=== PATIENT | female | born 1970 | race American Indian/Alaskan Native ===

== ENCOUNTER 2018-06-10 09:26 | Day surgery (SDC) | payer OTHER ==
[2018-06-10] MEDS ORDERED: NACL 0.9% 1000 ML 1,000 ML IV SCH (11:00)
--- NOTE | 2018-06-10 11:02 | Anesthesia Consultation ---
Anesthesia Consult and Med Hx Date of service: 06/10/18 - Airway Anesthetic Teeth Evaluation: Partials ROM Head & Neck: Adequate Mental/Hyoid Distance: Adequate Mallampati Class: Class II Intubation Access Assessment: Probably Good - Pulmonary Exam CTA: Yes - Cardiac Exam Cardiac Exam: RRR - Pre-Operative Health Status ASA Pre-Surgery Classification: ASA2 Proposed Anesthetic Plan: MAC - Pulmonary Hx Smoking: No Hx Asthma: No Hx Respiratory Symptoms: Yes (bronchitis; asymptomatic today) SOB: No - Cardiovascular System Hx Hypertension: Yes (noncompliant with meds however BP normal today) Hx Heart Attack/AMI: No Hx Percutaneous Transluminal Coronary Angioplasty (PTCA): No Hx Cardia Arrhythmia: No - Central Nervous System Hx Seizures: No CVA: No - Endocrine Hx Renal Disease: No Hx Liver Disease: No Hx Insulin Dependent Diabetes: No Hx Non-Insulin Dependent Diabetes: No Hx Thyroid Disease: No - Other Systems Hx Obesity: No - Additional Comments Anesthesia Medical History Comments: No hx anesthetic complications.
--- NOTE | 2018-06-10 11:02 | Anesthesia Day of Surgery ---
Anesthesia Day of Surgery - Day of Surgery Patient Examined: Yes Patient H&P Reviewed: Yes Patient is NPO: Yes
[2018-06-10] MEDS ORDERED: DIPRIVAN 10 MG/ML IV ONE ×2 (12:36→12:37)
--- NOTE | 2018-06-10 13:03 | Procedure Note ---
Date of procedure: 06/10/18 Pre-op diagnosis: GERD/Colon Polyp Screening Post-op diagnosis: other (Mild to Moderate Distal Erosive Esophagitis/ Gastritis/ No Colon Polyps noted/ minor,Left Colon Diverticuli/ Minor,Internal Hemorrhoid) Procedure: EGD with Biopsy and Colonoscopy Anesthesia: [facility] [place] Surgeon: JAYCE ANDERSEN Estimated blood loss: minimal Pathology: list Specimen disposition: to lab Condition: stable Disposition: same day (Avoid aspirin and NSAID for 5 days. Treat with PPI and follow up in 1 to 2 weeks ([phone]).)
--- NOTE | 2018-06-10 13:05 | Operative Report ---
PROCEDURE: EGD. INDICATIONS: A 47-year-old female with an underlying history of blood pressure, who has taken NSAID. They had noticed some hematemesis on one occasion. EGD was done and also has complaints of GERD symptoms. EGD was done to make sure there was not any significant upper GI pathology present. DESCRIPTION OF PROCEDURE: Procedure was done after getting informed consent with MAC anesthesia. Instrument was passed through the hypopharynx into the esophagus, which showed mild to moderate distal erosive esophagitis. There was no evidence of any Leilani-Payne tear or any active bleeding from the esophagus. Similarly, there was no evidence of any active bleeding from the stomach. Stomach showed some antral gastritis. No peptic ulcer disease, was noted in the straight or the retroverted view. The pylorus was patent. The duodenum in the first and second portion appeared normal. Biopsy was done from the gastric antrum, angularis incisura, gastric body to rule out for H. pylori and atrophic gastritis. There was minimal bleeding from the biopsy site. No complications associated with the procedure. ASSESSMENT: GERD, mild to moderate distal erosive esophagitis, gastritis. No peptic ulcer disease noted. Patent pylorus. Plan is to treat the patient with PPI, have the patient avoid aspirin and aspirin-related products for the next few days. Follow up in the office in 1-2 weeks' time. A colonoscopy will also be done as part of colon polyp screening. Again, there was minimal bleeding from the biopsy sites. No complications associated with the procedure. Kacey Colunga was in the room throughout the entirety of the procedure. JOB# [id number] SAMUEL/OCTAVIANO
--- NOTE | 2018-06-10 13:09 | Operative Report ---
PROCEDURE: Colonoscopy. INDICATIONS: A 47-year-old -[place] female, who has an underlying history of blood pressure. She has a strong family history of cancer. She has got family history of breast cancer with mets to the brain, grandmother having lung cancer. Colonoscopy was done to make sure that there was no significant as part of colon polyp screening procedure was done after getting informed consent with MAC and strong family history of cancer. Initial rectal exam was unremarkable. Instrument was passed through the rectum onto the cecum, which was identified with ileocecal valve and appendiceal orifice. Visualization was fair. Cecum, ascending colon, transverse colon showed normal mucosa. There was minor left colon diverticular disease, some of which were; however, deep and minor internal hemorrhoids on the retroverted view. There was no bleeding associated with the procedure. No complications associated with the procedure. ASSESSMENT: Colon polyp screening. FAMILY HISTORY: Cancer. No colon polyps noted. Minor left colon diverticular disease, minor internal hemorrhoids. The patient will be encouraged to take fiber supplements. She will be treated with PPI because of the upper GI findings of esophagitis, gastritis, must avoid aspirin and aspirin-related products for the next few days and to follow up in the office in 1-2 weeks' time. RN, Kacey Colunga was in the room for the entirety of the procedure. JOB# [id number] SAMUEL/OCTAVIANO
[2018-06-10 13:40] VITALS: BP 123/85
== END 2018-06-10 09:27 | disposition home or self-care (01) ==
LOC: GIO 09:26
DX: Z12.11 Encounter for screening for malignant neoplasm of colon (principal); K29.50 Unspecified chronic gastritis without bleeding; K57.30 Diverticulosis of large intestine without perforation or abscess without bleeding; K64.8 Other hemorrhoids; K21.0 Gastro-esophageal reflux disease with esophagitis; I10 Essential (primary) hypertension; Z98.891 History of uterine scar from previous surgery; Z80.3 Family history of malignant neoplasm of breast; Z80.1 Family history of malignant neoplasm of trachea, bronchus and lung; Z79.899 Other long term (current) drug therapy; Z88.0 Allergy status to penicillin
CPT/HCPCS: 43239; 45378; 81025; 88305; 88342; J2704; J7030